=== PATIENT | male | born 1965 | race Caucasian/White ===

== ENCOUNTER 2021-04-18 08:36 | Inpatient (IN) ==
[~2021-04-18 08:36] MED LIST: Buffered Lidocaine 1% SYRIN 1 ml INTRADERM ONE; Lactated Ringers 1000 ml BAG 1,000 ML IV SCH; ceFAZolin 2 GM in NS PREMIX 2 GM/100 ML BAG IVPB ONE
[2021-04-18] MEDS ORDERED: Vancomycin 1,000 MG VIAL ONE (10:25)
[2021-04-18] MEDS ORDERED: Bupivacaine 0.5% SDV PF 30ML VIAL ONE (10:25)
[2021-04-18] MEDS ORDERED: Rocuronium 50 mg VIAL 10 mg/ml 5 ml VIAL (50 mg) ONE (10:57)
[2021-04-18] MEDS ORDERED: Midazolam 2 mg/2 ml VIAL 1 mg/ml 2 ml VIAL (2 mg) ONE (10:57)
[2021-04-18] MEDS ORDERED: fentaNYL 250 mcg/5 ml 50 MCG/ML 5 ml VIAL (250 MCG) ONE (10:58)
[2021-04-18] MEDS ORDERED: Lidocaine 2% PF 5 ML VIAL ONE (11:00)
[2021-04-18] MEDS ORDERED: Propofol 10 MG/ML 20 ML BTL ONE (11:02)
[2021-04-18] MEDS ORDERED: Ondansetron 4 mg VIAL 2 MG/ML 2 ml VIAL ONE ×2 (11:02→15:59)
[2021-04-18] MEDS ORDERED: Dexamethasone IV 4 MG/ML VIAL 1 ml VIAL ONE (11:02)
[2021-04-18] MEDS ORDERED: ROPIVACAINE 5 MG/ML 30 ML BTL (0.5%) ONE (11:12)
[2021-04-18] MEDS ORDERED: HYDROmorphone 1 MG/1 ML SYRINGE ONE ×2 (11:58→14:03)
[2021-04-18] MEDS ORDERED: ceFAZolin VIAL VIAL ONE (12:09)
[2021-04-18] MEDS ORDERED: Sugammadex 500 MG/5 ML 5 ml VIAL IV PUSH ONE (12:22)
[2021-04-18] MEDS ORDERED: Sevoflurane BOTTLE ONE (12:24)
[2021-04-18] MEDS ORDERED: fentaNYL 100 mcg/2 ml 50 MCG/ML VIAL ONE (13:50)
[2021-04-18] MEDS ORDERED: Ondansetron 4 mg VIAL 2 MG/ML 2 ml VIAL IV PRN (15:05)
[2021-04-18] MEDS ORDERED: Ondansetron ODT 4 mg TAB 4 MG TAB PO PRN (15:05)
[2021-04-18] MEDS ORDERED: Morphine 2 MG/ML SYRINGE IV PRN (15:05)
[2021-04-18] MEDS ORDERED: Lactulose 30 ml UDC PO PRN (15:05)
[2021-04-18] MEDS ORDERED: diPHENhydraMINE 25 mg TAB PO PRN (15:05)
[2021-04-18] MEDS ORDERED: diPHENhydraMINE IV 50 MG/ML 1 ml VIAL (BENADRYL) IV PRN ×2 (15:05→15:15)
[2021-04-18] MEDS ORDERED: oxyCODONE/Acetamin 5/325 mg TAB PO PRN ×2 (15:05)
[2021-04-18] MEDS ORDERED: Magnesium Hydroxide LIQ 30 ML UDC PO PRN (15:05)
[2021-04-18] MEDS ORDERED: Naloxone 0.4 mg VIAL 0.4 mg/ml 1 ml VIAL IV PRN (15:15)
[2021-04-18] MEDS ORDERED: Prochlorperazine 5 mg/ml 2 ml VIAL (10 mg) IV PRN ×2 (15:15→17:29)
[2021-04-18] MEDS ORDERED: Dextrose 50% Syringe 50 ml 25 GM/50 ML SYRINGE IV PUSH PRN (15:18)
[2021-04-18] MEDS: Lactated Ringers 1000 ml BAG 1,000 ML IV SCH (16:40)
[2021-04-18] MEDS ORDERED: Insulin GLARGINE 100 un/ml 10 ml VIAL SUBCUT SCH (18:00)
[2021-04-18] MEDS: ceFAZolin 1 GM ADVAN 1 GM in NS 0.9% 50 ML 50 ML IVPB SCH (21:28)
[2021-04-18] MEDS: Magnesium Hydroxide LIQ 30 ML UDC PO SCH (21:30)
[2021-04-19] MEDS: ceFAZolin 1 GM ADVAN 1 GM in NS 0.9% 50 ML 50 ML IVPB SCH ×2 (03:37→11:54)
[2021-04-19] MEDS: Lactated Ringers 1000 ml BAG 1,000 ML IV SCH (04:09)
[2021-04-19 07:36] LABS: Hematocrit 38 % (42-52); Hemoglobin 12.7 g/dL (14.0-18.0); Mean Platelet Volume 8.9 fL (7.4-10.4); Platelet Count 173 10^3/uL (150-450)
[2021-04-19 07:44] LABS: Calcium 8.4 mg/dL (8.6-10.3); EGFR African American 88.1 (>60); EGFR Non-African American 72.8 (>60); Potassium 3.9 mmol/L (3.5-5.0)
[2021-04-19] MEDS: Magnesium Hydroxide LIQ 30 ML UDC PO SCH (08:07)
[2021-04-19] MEDS ORDERED: CMCS:Nebivolol 2.5 mg TAB (NF) PO SCH (09:00)
[2021-04-19] MEDS ORDERED: Vitamin THERAPEUTIC TAB PO SCH (09:00)
[2021-04-19 12:47] VITALS: BP 135/75
== END 2021-04-19 16:20 | disposition home or self-care (01) | DRG 302 ==
LOC: AA 08:36 → SSU 16:40
PROVIDERS: ADMIT Orthopaedic Surgery; ATTEND Orthopaedic Surgery